=== PATIENT | male | born 1960 | race Caucasian/White ===

== ENCOUNTER 2021-03-07 10:47 | Emergency (ER) | payer OTHER ==
[~2021-03-07] VITALS: Ht 170.2 cm; Wt 77.1 kg
[2021-03-07 11:10] VITALS: BP 137/91
--- NOTE | 2021-03-07 11:10 | NUR ---
Fever and runny nose since last Sunday. Intermittent abdominal pain to LLQ radiating to back x1 week. Pain level 0/10 at this. Pt reports having constipation. Pt took laxative x 5 days ago with improvement. Last BM today 03/07/21, normal. Denies any other flu like symtpoms. Denies urinary symptoms. Pt COVID - from prior test on 03/03/21. Pt currently afebrile 98.7. Pt took tylenol 0630. Allergies: NKA Med hx: none
--- NOTE | 2021-03-07 12:00 | NUR ---
Pt ambulated to restroom to provide urine sample
[2021-03-07] MEDS ORDERED: ACET-10509 PO (12:46)
[2021-03-07] MEDS ORDERED: LEVO500T98 PO (12:47)
--- NOTE | 2021-03-07 12:59 | NUR ---
Patient discharged with v/s stable. Written and verbal after care instructions ABOUT VIRAL GASTROENTERITIS given and explained. Patient alert, oriented and verbalized understanding of instructions. Ambulatory with steady gait. All questions addressed prior to discharge. ID band removed. Patient advised to follow up with PMD. Rx of TYLENOL EXTRA STRENGHT AND LEVOFLOXACIN given. Patient educated on indication of medication including possible reaction and side effects. Opportunity to ask questions provided and answered.
== END 2021-03-07 12:58 | disposition home or self-care (01) ==
LOC: MED 10:47
DX: K52.9 Noninfective gastroenteritis and colitis, unspecified (principal); R50.9 Fever, unspecified; Z79.2 Long term (current) use of antibiotics; Z79.899 Other long term (current) drug therapy
CPT/HCPCS: 99283